=== PATIENT | male | born 1990 | race African-American/Black ===

== ENCOUNTER 2022-01-11 19:45 | Inpatient (IN) | payer OTHER ==
[2022-01-11 21:55] VITALS: BMI 21.9
[2022-01-11] MEDS ORDERED: ACETAMINOPHEN 325 MG TABLET (FP) PO PRN ×2 (22:29)
[2022-01-11] MEDS ORDERED: MELATONIN 5 MG TABLETS PO PRN (22:29)
[2022-01-11] MEDS ORDERED: MAGNESIUM HYDROX 2400MG/30ML ORAL SUSPENSION 30 ML CUP PO PRN (22:29)
[2022-01-11] MEDS ORDERED: IBUPROFEN 400 MG TABLET (FP) PO PRN (22:29)
[2022-01-11] MEDS ORDERED: BISMUTH SUBSALICYLATE 524 MG/30 ML PO PRN (22:29)
[2022-01-11] MEDS ORDERED: hydrOXYzine PAMOATE 25 MG CAPSULE (FP) PO PRN (22:29)
[2022-01-11] MEDS ORDERED: MAGNESIUM CITRATE 300 ML BOTTLE PO PRN (22:29)
[2022-01-11] MEDS ORDERED: MAG HYDROX/AL HYDROX/SIMETH 30 ML UNIT-DOSE CUP PO PRN (22:29)
[2022-01-11] MEDS ORDERED: BENZOCAINE/MENTHOL (CHLORASEPTIC ) LOZENGE MM PRN (22:29)
[2022-01-11] MEDS ORDERED: DICYCLOMINE HCL 10 MG CAPSULE PO PRN (22:29)
[2022-01-11] MEDS ORDERED: IBUPROFEN 600 MG TABLET (FP) PO PRN (22:29)
[2022-01-11] MEDS ORDERED: NICOTINE POLACRILEX 2 MG GUM BUC PRN (22:29)
[2022-01-11] MEDS ORDERED: ONDANSETRON *ODT* 4 MG TABLET SL PRN (22:29)
[2022-01-11] MEDS ORDERED: METHOCARBAMOL 500 MG TABLET PO PRN (22:29)
[2022-01-11] MEDS ORDERED: LOPERAMIDE HCL 2 MG CAPSULE PO PRN (22:29)
[2022-01-12] MEDS ORDERED: cloNIDine HCL 0.1 MG TABLET PO PRN (08:49)
[2022-01-12] MEDS ORDERED: methaDONE HCL 10 MG TABLET (FOR DETOX USE ONLY) PO ONE (08:49)
[2022-01-12 10:13] LABS: HEMATOCRIT 40.4 % (35.4-49); HEMOGLOBIN 12.9 GM/dL (11.7-16.9); MCH 27.2 pg (25.7-33.7); MEAN CELL VOLUME 85.1 fl (80-96); MEAN PLT VOLUME 9.1 fl (7.5-11.1); PLATELET COUNT 245 10^3/uL (134-434); RBC 4.74 M/mm3 (4.00-5.60); RDW 15.1 % (11.9-15.9); WHITE BLOOD COUNT 5.9 K/mm3 (4.0-10.0)
[2022-01-12 10:18] LABS: ALBUMIN 3.4 g/dl (3.4-5.0); BLOOD UREA NITROGEN 10.9 mg/dL (7-18); CALCIUM 9.4 mg/dL (8.5-10.1)
[2022-01-12 10:21] LABS: CREATININE 0.8 mg/dL (0.55-1.3)
[2022-01-12 10:23] LABS: BILIRUBIN,TOTAL 0.4 mg/dL (0.2-1); TOT PROT 7.1 g/dl (6.4-8.2)
[2022-01-12] MEDS ORDERED: methaDONE HCL 10 MG TABLET (FOR DETOX USE ONLY) ONE (10:29)
[2022-01-12] MEDS: PRENATAL VITAMINS W/ FOLIC ACID TABLET (FP) PO SCH (10:40)
[2022-01-12] MEDS: diazePAM 5 MG TABLET PO PRN (17:32)
[2022-01-12] MEDS ORDERED: THIAMINE HCL 100 MG TABLET (FP) PO SCH (22:00)
[2022-01-13 09:07] VITALS: BP 128/75; PULSE 63; TEMP 97.5
[2022-01-13] MEDS ORDERED: methaDONE HCL 10 MG TABLET (FOR DETOX USE ONLY) ONE (09:24)
[2022-01-13] MEDS: PRENATAL VITAMINS W/ FOLIC ACID TABLET (FP) PO SCH (10:04)
[2022-01-13] MEDS: diazePAM 5 MG TABLET PO PRN (10:05)
[2022-01-13 12:05] LABS: GLUCOSE,FASTING 108 mg/dL (74-106)
[2022-01-13 12:08] LABS: SGOT/AST 72 U/L (15-37); SGPT/ALT 156 U/L (13-61)
[2022-01-14] MEDS ORDERED: methaDONE HCL 10 MG TABLET (FOR DETOX USE ONLY) PO ONE (10:00)
[2022-01-16] MEDS ORDERED: methaDONE HCL 10 MG TABLET (FOR DETOX USE ONLY) PO ONE (10:00)
== END 2022-01-13 11:33 | disposition left against medical advice (07) | DRG 770 ==
LOC: YASAS 19:45 → Y3N 01-12 11:13
PROVIDERS: ADMIT Allergy & Immunology; ATTEND Surgery
PROC: HZ2ZZZZ Detoxification Services for Substance Abuse Treatment (ICD-10-PCS; principal; 2022-01-12)
DX: F11.23 Opioid dependence with withdrawal (principal); F14.20 Cocaine dependence, uncomplicated; F17.210 Nicotine dependence, cigarettes, uncomplicated; Z28.310 Unvaccinated for COVID-19
CPT/HCPCS: 36415; 80053; 82947; 84450; 84460; 85027; 86780; 87811; 93005; 93010; C9803-CS; J0735; U0003; U0005

== ENCOUNTER 2023-03-28 12:54 | Inpatient (IN) | payer OTHER ==
[2023-03-28 13:29] VITALS: BMI 20.3
[2023-03-28] MEDS ORDERED: IBUPROFEN 400 MG TABLET (FP) PO PRN (15:32)
[2023-03-28] MEDS ORDERED: BENZOCAINE/MENTHOL (CHLORASEPTIC ) LOZENGE MM PRN (15:32)
[2023-03-28] MEDS ORDERED: LOPERAMIDE HCL 2 MG CAPSULE PO PRN (15:32)
[2023-03-28] MEDS ORDERED: POLYETHYLENE GLYCOL (HEALTHYLAX) 3350 17 GM PACKET PO PRN (15:32)
[2023-03-28] MEDS ORDERED: MAGNESIUM HYDROX 2400MG/30ML ORAL SUSPENSION 30 ML CUP PO PRN (15:32)
[2023-03-28] MEDS ORDERED: BISMUTH SUBSALICYLATE 524 MG/30 ML PO PRN (15:32)
[2023-03-28] MEDS ORDERED: BENZONATATE 200 MG CAPSULE PO PRN (15:32)
[2023-03-28] MEDS ORDERED: guaiFENesin 600 MG TABLET.ER (FP) PO PRN (15:32)
[2023-03-28] MEDS ORDERED: IBUPROFEN 600 MG TABLET (FP) PO PRN (15:32)
[2023-03-28] MEDS ORDERED: NALOXONE HCL 0.4 MG/ML VIAL IM PRN (15:32)
[2023-03-28] MEDS ORDERED: NICOTINE POLACRILEX 2 MG GUM BUC PRN (15:32)
[2023-03-28] MEDS ORDERED: ONDANSETRON *ODT* 4 MG TABLET SL PRN (15:32)
[2023-03-28] MEDS ORDERED: MAG HYDROX/AL HYDROX/SIMETH 30 ML UNIT-DOSE CUP PO PRN (15:32)
[2023-03-28] MEDS ORDERED: NALOXONE HCL (KLOXXADO) 8 MG SPRAY NS PRN (15:32)
[2023-03-28] MEDS ORDERED: ACETAMINOPHEN 325 MG TABLET (FP) PO PRN (15:32)
[2023-03-28] MEDS: hydrOXYzine PAMOATE 25 MG CAPSULE (FP) PO PRN (23:01)
[2023-03-28] MEDS: THIAMINE HCL 100 MG TABLET (FP) PO SCH (23:01)
[2023-03-28] MEDS: METHOCARBAMOL 500 MG TABLET PO PRN (23:01)
[2023-03-28] MEDS: MELATONIN 5 MG TABLETS PO SCH (23:01)
[2023-03-29] MEDS ORDERED: cloNIDine HCL 0.1 MG TABLET PO PRN (10:18)
[2023-03-29] MEDS: PRENATAL VITAMINS W/ FOLIC ACID TABLET (FP) PO SCH (10:30)
[2023-03-29] MEDS ORDERED: methaDONE HCL 10 MG TABLET (FOR DETOX USE ONLY) PO ONE (10:45)
[2023-03-29 10:50] LABS: HEMATOCRIT 41.8 % (35.4-49); HEMOGLOBIN 13.6 GM/dL (11.7-16.9); MCH 28.5 pg (25.7-33.7); MCHC 32.5 g/dl (32.0-35.9); MEAN CELL VOLUME 87.7 fl (80-96); MEAN PLT VOLUME 8.7 fl (7.5-11.1); PLATELET COUNT 279 10^3/uL (134-434); RBC 4.76 M/mm3 (4.00-5.60); RDW 13.8 % (11.9-15.9)
[2023-03-29 10:55] LABS: POTASSIUM 4.4 mmol/L (3.5-5.1)
[2023-03-29 11:00] LABS: ALBUMIN 3.6 g/dl (3.4-5.0); CALCIUM 9.3 mg/dL (8.5-10.1)
[2023-03-29 11:01] LABS: BLOOD UREA NITROGEN 14.7 mg/dL (7-18)
[2023-03-29 11:04] LABS: BILIRUBIN,TOTAL 0.5 mg/dL (0.2-1); CREATININE 0.8 mg/dL (0.55-1.3)
[2023-03-29] MEDS: hydrOXYzine PAMOATE 25 MG CAPSULE (FP) PO PRN ×2 (17:24→22:37)
[2023-03-29] MEDS: METHOCARBAMOL 500 MG TABLET PO PRN (22:37)
[2023-03-29] MEDS: MELATONIN 5 MG TABLETS PO SCH (22:37)
[2023-03-29] MEDS: THIAMINE HCL 100 MG TABLET (FP) PO SCH (22:37)
[2023-03-30] MEDS: PRENATAL VITAMINS W/ FOLIC ACID TABLET (FP) PO SCH (09:52)
[2023-03-30] MEDS: hydrOXYzine PAMOATE 25 MG CAPSULE (FP) PO PRN ×2 (12:27→22:20)
[2023-03-30] MEDS: DICYCLOMINE HCL 10 MG CAPSULE PO PRN ×2 (12:28→22:21)
[2023-03-30] MEDS: MELATONIN 5 MG TABLETS PO SCH (22:19)
[2023-03-30] MEDS: THIAMINE HCL 100 MG TABLET (FP) PO SCH (22:19)
[2023-03-31] MEDS: METHOCARBAMOL 500 MG TABLET PO PRN ×2 (09:58→21:55)
[2023-03-31] MEDS: PRENATAL VITAMINS W/ FOLIC ACID TABLET (FP) PO SCH (09:58)
[2023-03-31] MEDS: hydrOXYzine PAMOATE 25 MG CAPSULE (FP) PO PRN (09:59)
[2023-03-31] MEDS ORDERED: methaDONE HCL 10 MG TABLET (FOR DETOX USE ONLY) PO ONE (10:00)
[2023-03-31] MEDS: MELATONIN 5 MG TABLETS PO SCH (21:54)
[2023-03-31] MEDS: THIAMINE HCL 100 MG TABLET (FP) PO SCH (21:55)
[2023-04-01] MEDS: METHOCARBAMOL 500 MG TABLET PO PRN ×2 (10:16→22:29)
[2023-04-01] MEDS: hydrOXYzine PAMOATE 25 MG CAPSULE (FP) PO PRN ×2 (10:16→22:29)
[2023-04-01] MEDS: PRENATAL VITAMINS W/ FOLIC ACID TABLET (FP) PO SCH (10:17)
[2023-04-01] MEDS: MELATONIN 5 MG TABLETS PO SCH (22:29)
[2023-04-01] MEDS: THIAMINE HCL 100 MG TABLET (FP) PO SCH (22:29)
[2023-04-02] MEDS: hydrOXYzine PAMOATE 25 MG CAPSULE (FP) PO PRN (08:40)
[2023-04-02] MEDS: METHOCARBAMOL 500 MG TABLET PO PRN ×2 (08:40→21:29)
[2023-04-02] MEDS ORDERED: methaDONE HCL 10 MG TABLET (FOR DETOX USE ONLY) PO ONE (10:00)
[2023-04-02] MEDS: PRENATAL VITAMINS W/ FOLIC ACID TABLET (FP) PO SCH (10:15)
[2023-04-02] MEDS: MELATONIN 5 MG TABLETS PO SCH (21:28)
[2023-04-02] MEDS: THIAMINE HCL 100 MG TABLET (FP) PO SCH (21:28)
[2023-04-03 06:16] VITALS: BP 117/72; PULSE 63; RESP 16; TEMP 98.2
== END 2023-04-03 09:09 | disposition other institution (70) | DRG 773 ==
LOC: YASAS 12:54 → Y3N 16:38
PROVIDERS: ADMIT Allergy & Immunology; ATTEND Surgery
PROC: HZ2ZZZZ Detoxification Services for Substance Abuse Treatment (ICD-10-PCS; principal; 2023-03-28)
DX: F11.23 Opioid dependence with withdrawal (principal); F14.20 Cocaine dependence, uncomplicated; F17.210 Nicotine dependence, cigarettes, uncomplicated; Z28.310 Unvaccinated for COVID-19; Z28.9 Immunization not carried out for unspecified reason
CPT/HCPCS: 36415; 80053; 85027; 86780; 87635; 87811